=== PATIENT | male | born 1990 | race Caucasian/White ===

== ENCOUNTER 2024-08-24 03:29 | Emergency (ER) | payer MEDICAID ==
[~2024-08-24] VITALS: Ht 170.2 cm; Wt 88.6 kg
[2024-08-24] MEDS: SODIUM CHLORIDE 0.9% 1,000 ML IV ONE (04:05)
[2024-08-24 04:06] LABS: BASOPHILS % (AUTO) 0.2 % (0.0-2.0); EOSINOPHILS % (AUTO) 2.7 % (1.0-6.0); HEMATOCRIT 42.5 % (41-53); HEMOGLOBIN 14.7 g/dL (13.5-17.5); LYMPHOCYTES # (AUTO) 2.6 K/uL (1.0-4.8); MEAN CORPUSCULAR HEMOGLOBIN 29.2 pg (26.0-34.0); MEAN CORPUSCULAR HGB CONC 34.7 G/dL (31.0-37.0); MEAN CORPUSCULAR VOLUME 84 fL (80-100); MONOCYTES # (AUTO) 0.8 K/uL (0.1-1.0); MONOCYTES % (AUTO) 7.6 % (2.0-9.0); NEUTROPHILS # (AUTO) 6.6 K/uL (1.8-7.7); NEUTROPHILS % (AUTO) 64.5 % (40.0-70.0); PLATELET COUNT (AUTO) 255 K/uL (150-450); RED BLOOD CELL COUNT(AUTO) 5.05 MIL/uL (4.50-5.90); RED CELL DISTRIBUTION WIDTH 13.1 % (11.5-14.5); WHITE BLOOD COUNT (AUTO) 10.3 K/uL (4.5-11.0)
[2024-08-24] MEDS: LORazepam 2 MG/ML VIAL IVP ONE (04:08)
[2024-08-24 04:13] LABS: ANION GAP 4 mmol/L (8-16); CALCIUM, TOTAL 8.6 mg/dL (8.8-10.5); CARBON DIOXIDE 31 mmol/L (22-29); CHLORIDE 102 mmol/L (98-107); CREATININE 0.94 mg/dL (0.60-1.30); GLOMERULAR FILTR. RATE CALC > 60 mL/min (>60); GLUCOSE,RANDOM 135 mg/dL (70-110); POTASSIUM 3.6 mmol/L (3.5-5.1); SODIUM SERUM 137 mmol/L (136-145); UREA NITROGEN, BLOOD 16 mg/dL (7-18)
[2024-08-24 04:27] LABS: B-TYPE NATRIURETIC PEPTIDE < 5 pg/mL (0-100)
[2024-08-24 04:28] LABS: TROPONIN I-HIGH SENSITIVITY 4 ng/L (<76)
[2024-08-24 05:25] VITALS: BP 145/90; PULSE 87; RESP 16; TEMP 98.3; O2SAT 100
== END 2024-08-24 05:40 | disposition home or self-care (01) ==
LOC: EMS 03:31
DX: R00.2 Palpitations (principal); R42 Dizziness and giddiness; F14.90 Cocaine use, unspecified, uncomplicated
CPT/HCPCS: 99285; 96374; 71045; 96361; 80048; 83880; 84484; 85025; 36415; 93005; J2060; J7030